=== PATIENT | female | born 1985 | race Caucasian/White ===

== ENCOUNTER 2016-10-03 08:03 | Day surgery (SDC) | payer BC ==
[~2016-10-03] VITALS: Ht 160 cm; Wt 78.0 kg
[~2016-10-03 08:03] MED LIST: AMOXICILLIN/CL875 MG PO; AMOXICILLIN500 MG PO; AUGMENTIN875TAB PO; BACTRIM DS1 TAB PO; CIPROFLOXACN500 MG PO; CLARITIN10 M1 PO; CLINDAMYCIN HC150 MG PO; DIFLUCAN150 MG PO; ENZYME DIGES PO; FLONASE NASAL50 MCG; MACROBID100 MG PO; MUCINEX600 MG PO; MULTI VIT PO; MUPIROCIN2 % EX; PROBIOTIC1 TAB PO; PYRIDIUM200 MG PO; SPRINTEC 2828 DAY OR; TRAMADOL HCL50 MG PO; TYLOPHEN500 MG PO; VITAMIN C500 M6 PO; ZITHROMAX500 MG PO; [UNRECOGNIZED DRUG - CODE] OR
[2016-10-03 09:46] VITALS: BP 131/77
== END 2016-10-03 10:00 | disposition home or self-care (01) | DRG 603 ==
LOC: ORM 08:03
PROVIDERS: ATTEND Surgery
DX: L05.91 Pilonidal cyst without abscess (principal); Z53.8 Procedure and treatment not carried out for other reasons; Z32.01 Encounter for pregnancy test, result positive

== ENCOUNTER 2017-08-14 07:37 | Day surgery (SDC) | payer BC ==
[~2017-08-14] VITALS: Ht 157.5 cm; Wt 83.5 kg
[2017-08-14] MEDS ORDERED: KLS IBUPROFEN IB PO (10:32)
[2017-08-14 11:12] VITALS: BP 102/62
== END 2017-08-14 10:55 | disposition home or self-care (01) | DRG 572 ==
LOC: ORM 07:37
PROVIDERS: ATTEND Surgery
PROC: 0JB90ZZ Excision of Buttock Subcutaneous Tissue and Fascia, Open Approach (ICD-10-PCS; principal; 2017-08-14)
DX: L05.91 Pilonidal cyst without abscess (principal)
CPT/HCPCS: C9290

== ENCOUNTER 2022-01-04 07:43 | Day surgery (SDC) | payer OTHER ==
[~2022-01-04] VITALS: Ht 157.5 cm; Wt 74.4 kg
[~2022-01-04 07:43] MED LIST changes: +KLS IBUPROFEN IB PO
[2022-01-04 10:36] VITALS: BP 119/74
[2022-01-04] MEDS ORDERED: PERCOCET 5/321 COMBO PO (10:49)
== END 2022-01-04 11:00 | disposition home or self-care (01) | DRG 419 ==
LOC: ORM 07:43
PROVIDERS: ATTEND Surgery
PROC: 0FT44ZZ Resection of Gallbladder, Percutaneous Endoscopic Approach (ICD-10-PCS; principal; 2022-01-04)
DX: K80.10 Calculus of gallbladder with chronic cholecystitis without obstruction (principal)
CPT/HCPCS: J0131

== ENCOUNTER 2023-03-11 17:23 | Emergency (ER) | payer OTHER ==
[2023-03-11] VITALS (9 sets, daily range): BP systolic 107–128; BP diastolic 71–82
[~2023-03-11] VITALS: Ht 157.5 cm; Wt 79.5 kg
[~2023-03-11 17:23] MED LIST changes: +PERCOCET 5/321 COMBO PO
[2023-03-11 17:46] LABS: ALBUMIN 4.8 g/dL (3.2-5.0); ALKALINE PHOSPHATASE 49 u/l (38-126); ANION GAP 17 (6-22 (CALC)); BILIRUBIN, TOTAL 0.4 mg/dL (0.02-1.3); BUN 23 mg/dL (7-17); BUN/CREATININE RATIO 41 (12-20 (CALC)); CARBON DIOXIDE 23 mmol/l (22-30); CHLORIDE 103 mmol/l (95-108); CREATININE 0.6 mg/dL (0.5-1.0); GFR FOR AFR.AMER. > 60 ML/MIN (>=60 (CALC)); GFR OTHER RACES > 60 ML/MIN (>=60 (CALC)); SGOT/AST 27 u/l (14-36); SODIUM 138 mmol/l (137-146); TOTAL PROTEIN 7.6 g/dL (6.3-8.2)
== END 2023-03-11 19:55 | disposition short-term general hospital (02) | DRG 833 ==
LOC: ED 17:23
PROVIDERS: Family Medicine
DX: O26.891 Other specified pregnancy related conditions, first trimester (principal); R10.31 Right lower quadrant pain; R10.32 Left lower quadrant pain; R93.89 Abnormal findings on diagnostic imaging of other specified body structures; Z3A.01 Less than 8 weeks gestation of pregnancy